=== PATIENT | male | born 1980 | race Two or more races ===

== ENCOUNTER 2024-12-28 15:03 | Inpatient (IN) | payer MEDICAID, OTHER ==
[~2024-12-28] VITALS: Ht 180.3 cm; Wt 103.8 kg
--- NOTE | 2024-12-28 15:33 | ED.PDOC ---
GI ASSESSMENT HPI Comments Allergies: NKDA HPI: Poor Historian. 44-year-old male presents to emergency depart for evaluation of right lower quadrant pain started on Saturday. Patient states also right back pain. He points to his right flank area. Pain is constant. Pain is worse with certain movements. Denies any associated nausea or vomiting or diarrhea. Denies any fever. This never happened before. Past Medical History: Denies any Past Surgical History: Denies any REVIEW OF SYSTEMS: CONSTITUTIONAL: Denies acute: fever, diaphoresis, chills, generalized weakness. HEAD: Denies acute: headache, photophobia Eyes: Denies acute: Double vision, vision loss, eye pain, eye discharge. EARS: Denies acute: tinnitus, hearing loss, ear discharge, ear pain, THROAT: Denies acute: sore throat, swelling, difficulty swallowing , pain with s wallowing, change in voice. NECK: Denies acute: neck pain, neck swelling, stiff neck. HEART: Denies acute : chest pain, palpitations, LUNGS: Denies acute: SOB, wheezing, cough, hemoptysis ABDOMEN: Denies acute: Nausea, Vomiting, diarrhea, melena , hematemesis, hematochezia SKIN: Denies acute: rash, redness, lesions, itchiness. EXTREMITIES: Denies acute: calf pain, numbness, tingling, weakness, denies pain in extremity. Denies acute: Low back pain. Neuro: Denies acute: focal neurological deficit, motor or sensory focal neurological deficit, tremors, seizure like activity, confusion, dizziness, change in mental status, loss of bowel or bladder function, cauda equina like symptoms. : Denies acute: dysuria, hematuria, increase in urinary frequency. PSYCH: Denies acute: hallucination, suicidal ideation, homicidal ideation. PHYSICAL EXAM: General: Clxa-kl-hiljlnji acute distress, awake and alert. Head: normocephalic, atraumatic. Neck: supple, trachea is midline, no swelling. Throat: Normal phonation. Eyes:, no erythema, no purulent discharge, no proptosis, no icterus. Heart: regular rate, regular rhythm, no significant murmur appreciated. Lungs: no apparent respiratory distress, Able to speak in full sentences. No wheezing, no rhonchi, no crackles. No stridors Clear to auscultation bilaterally. Abdomen: Right lower quadrant tender to palpation, non distended, soft, no guarding, no rebound, + bowel sounds. Neuro: Awake, Alert, oriented to name, self, situation, follows commands GCS=15. Speech is normal. Skin: no petechia, no purpura, no cyanosis, non-pale, not jaundice. Lower extremities: --no - Pitting edema no deformity, no focal swelling, no calf TTP. Makes eye contact. moves all four extremities. Face: no apparent facial droop. Right CVA tenderness to percussion Ambulating in the ED independently. ED COURSE: Chief Complaint: Abdominal Pain Time Seen by MD: 15:30 Primary Care Provider: none Reviewed Notes: Nurses Notes, Medications, Allergies Allergies: Coded Allergies: NO KNOWN ALLERGIES (Unverified , 12/28/24) Home Meds No Active Prescriptions or Reported Meds Information Source: Patient Mode of Arrival: Ambulatory Family History Family History: Reviewed,noncontributory to illness Social History Smoker: Non-Smoker Alcohol: Denies ETOH Use Drugs: Denies Drug Use Lives In: Home Was a procedure done? Was a procedure done?: No GI differential Dx Differential Diagnosis: Other (DDX include but not limited to diverticulitis, colitis, gastroenteritis, acute abdomen, SBO, enteritis, constipation, volvulus, appendicitis, Gallbladder disease, choledocolithiasis, ascending cholangitis, pancreatitis, intraAbdominal mass/neoplasm, hepatitis, UTI, pylonephritis, kidney stone, aneurysm, dissection, Inflammatory bowel disease, gastroparesis, ischemic bowel.) X-Ray, Labs, Meds, VS Vital Signs Date Time Temp Pulse Resp B/P (MAP) Pulse Ox O2 Delivery O2 Flow Rate FiO2 12/28/24 17:59 92 18 130/86 (101) 93 12/28/24 17:59 92 18 93 Room Air 12/28/24 17:58 92 18 130/86 12/28/24 17:05 91 15 152/95 12/28/24 16:46 91 12/28/24 16:39 90 20 95 Room Air* 0 21 12/28/24 16:27 98.0 91 20 152/95 (114) 95 98.0 12/28/24 15:19 98.3 90 19 153/87 (109) 97 Lab Test 12/28/24 17:52 12/28/24 16:12 12/28/24 15:28 Range/Units Lactic Acid Level 1.3 2.4 *H 0.4-2.0 mmol/L Urine Color Yellow Yellow Urine Clarity Clear Clear Urine pH 6.5 5.0-9.0 Urine Specific [place] 1.027 1.001-1.035 Urine Protein Trace H Negative Urine Ketones Negative Negative Urine Blood 2+ H Negative /uL Urine Nitrite Negative Negative Urine Bilirubin Negative Negative Urine Urobilinogen 2 H Negative mg/dL Urine Leukocyte Esterase Negative Negative /uL Urine RBC 71 0 - 3 /hpf Urine Microscopic WBC 2 0-3 /HPF Urine Squamous Epithelial Cells Few <5 /hpf Urine Bacteria None seen None Seen /hpf Urine Glucose Normal Normal mg/dL White Blood Count 10.7 4.4-10.8 10^3/uL Red Blood Count 5.11 4.5-5.90 10^6/uL Hemoglobin 15.8 13.5-17.5 g/dL Hematocrit 46.9 41.0-53.0 % Mean Corpuscular Volume 91.7 80.0-100.0 fL Mean Corpuscular Hemoglobin 30.9 28.0-32.0 pg Mean Corpuscular Hemoglobin Concent 33.7 32.0-36.0 g/dL Red Cell Distribution Width 13.1 11.8-14.3 % Platelet Count 268 140-450 10^3/uL Mean Platelet Volume 8.5 6.9-10.8 fL Neutrophils (%) (Auto) 80.2 H 37.0-80.0 % Lymphocytes (%) (Auto) 11.7 10.0-50.0 % Monocytes (%) (Auto) 7.8 0.0-12.0 % Eosinophils (%) (Auto) 0.0 0.0-7.0 % Basophils (%) (Auto) 0.3 0.0-2.0 % Neutrophils # (Auto) 8.6 1.6-8.6 10 ^3/uL Lymphocytes # (Auto) 1.3 0.4-5.4 10 ^3/uL Monocytes # (Auto) 0.8 0-1.3 10 ^3/uL Eosinophils # (Auto) 0 0-0.8 10 ^3/uL Basophils # (Auto) 0 0-0.2 10 ^3/uL Nucleated Red Blood Cells 0.1 % Sodium Level 141 136-145 mmol/L Potassium Level 3.9 3.5-5.1 mmol/L Chloride Level 104 98-107 mmol/L Carbon Dioxide Level 25 20-31 mmol/L Anion Gap 12 5-15 Blood Urea Nitrogen 12 9-23 mg/dL Creatinine 1.51 H 0.700-1.30 mg/dL Glomerular Filtration Rate Calc 59 >90 mL/min BUN/Creatinine Ratio 7.9 L 10.0-20.0 Serum Glucose 103 74-106 mg/dL Calcium Level 10.8 H 8.7-10.4 mg/dL Total Bilirubin 0.6 0.2-1.0 mg/dL Aspartate Amino Transferase (AST) 39 13-40 U/L Alanine Aminotransferase (ALT) 80 H 7-40 U/L Alkaline Phosphatase 75 46-116 U/L Troponin I High Sensitivity < 3 L </=54 ng/L Total Protein 8.2 5.7-8.2 g/dL Albumin 5.1 H 3.2-4.8 g/dL Lipase 45 12-53 U/L Hepatitis B Surface Antigen Pending Hepatitis C Antibody Pending Current Medications Medications (Trade) Dose Ordered Sig/Roz Route Start Time Stop Time Status Last Admin Sodium Chloride 1,000 ml @ 1,000 mls/hr Q1H ONCE IV 12/28/24 15:30 12/28/24 16:29 DC 12/28/24 16:25 Morphine Sulfate 4 mg ONCE ONCE IV 12/28/24 17:00 12/28/24 17:01 DC 12/28/24 17:05 Ondansetron HCl (Zofran) 4 mg ONCE ONCE IV 12/28/24 17:00 12/28/24 17:01 DC 12/28/24 17:04 Tamsulosin HCl (Flomax) 0.4 mg ONCE ONCE PO 12/28/24 17:15 12/28/24 17:16 DC 12/28/24 17:10 Ceftriaxone Sodium 50 ml @ 100 mls/hr ONCE ONCE IV 12/28/24 17:15 12/28/24 17:44 DC 12/28/24 17:09 [facility] [id number] [place] [id number] Ph: [phone] DIAGNOSTIC IMAGING Diagnostic Imaging Report : [id number] Signed PATIENT: MILAN COUGHLIN ACCT: [id number] UNIT: [id number] : 1980 LOC: ER ROOM / BED: / AGE / SEX: 44 / M ADM STATUS: REG ER SERVICE 1518 ORDERING PHYSICIAN: STEVIE PORTILLO DO PROCEDURE(s): ABPL - CT AB PEL WO CON-NO ORAL OR IV REASON: RLQ and R flank pain ORDER NUMBER(s): [id number], ACCESSION NUMBER(s): [id number] CT ABDOMEN AND PELVIS WITHOUT CONTRAST CLINICAL HISTORY: RLQ and R flank pain TECHNIQUE: Multiple contiguous axial images of the abdomen and pelvis without intravenous contrast. The images were reformatted degenerate coronal and sagittal reconstructions. All CT scans at this medical facility are performed using dose modulation techniques as appropriate to a performed exam including the following:Automated exposure control was utilized; adjustment of the MA and/or KV according to patient size; and use of iterative reconstruction technique. Radiation Dose Information: CT Dose: CTDI volume is 13 mGy. Dose-length product is 755 mGy*cm Comparison: None FINDINGS: Evaluation of the abdomen and pelvis is limited without intravenous contrast. There is a 4 mm calculus in the proximal right ureter. There is mild right hydroureteronephrosis. There is mild right perinephric fat stranding. There is no evidence of left renal calculus or hydronephrosis. There is mild fatty infiltration of the liver. The gallbladder, pancreas, adrenal glands, and spleen appear within normal limits. There is no gross evidence of abdominal lymphadenopathy. There is no free fluid or free air. The stomach grossly appears unremarkable. The small and large bowel loops demonstrate normal caliber. There are few scattered diverticula in the colon without evidence of acute diverticulitis. The abdominal aorta and IVC appear within normal limits. The bladder is poorly filled limiting evaluation. There is no evidence of a bladder calculus. The pelvic organs within normal limits.. There is no gross evidence of a pelvic mass. There is no free fluid collection. Lung bases are clear. There is no acute osseous abnormality. IMPRESSION: 1. 4 mm calculus in the proximal right ureter. There is mild right hydroureteronephrosis. There is mild right perinephric fat stranding. 2. Mild fatty infiltration of the liver. 3. Few scattered diverticula in the colon without evidence of acute diverticulitis. HS:Y ATED BY: VENTURA LEE MD DICTATED DATE/TIME: 12/28/241602 SIGNED BY: VENTURA LEE MD SIGNED DATE/TIME: 12/28/241602 [place] [address] Ph: [phone] DIAGNOSTIC IMAGING Diagnostic Imaging Report : [id number] Signed PATIENT: MILAN COUGHLIN ACCT: [id number] UNIT: [id number] : 1980 LOC: ER ROOM / BED: / AGE / SEX: 44 / M ADM STATUS: REG ER SERVICE 17 ORDERING PHYSICIAN: STEVIE PORTILLO DO PROCEDURE(s): CXRP - CHEST PORTABLE REASON: RLQ and R flank pain ORDER NUMBER(s): [id number], ACCESSION NUMBER(s): [id number] EXAM: XR Chest, 1 View CLINICAL INDICATION: RLQ and R flank pain TECHNIQUE: Frontal view of the chest. COMPARISON: None FINDINGS: LUNGS AND PLEURAL SPACES: Unremarkable. No consolidation. No pneumothorax. HEART: Unremarkable. No cardiomegaly. MEDIASTINUM: Unremarkable. Normal mediastinal contour. BONES/JOINTS: Unremarkable. No acute fracture. OTHER FINDINGS: . None. IMPRESSION: No acute cardiopulmonary process. ATED BY: LISA WEIR MD DICTATED DATE/TIME: 12/28/241604 SIGNED BY: LISA WEIR MD SIGNED DATE/TIME: 12/28/241604 Images Reviewed?: Images reviewed and evaluated by me Time of 1ST Reevaluation: 16:00 Reevaluation 1ST: Unchanged Patient Education/Counseling: Diagnosis, Treatment Family Education/Counseling: Other Comments Patient presented with the above HPI.-abdominal pain/flank pain-----workup was initiated. patient was found with the above mentioned diagnosis. the following medications were ordered: please refer to order lists of meds and tests obtained by myself Dr. Portillo. Patient ED course and VS have been stabilized. Patient has been reassessed in the ED and remained in a stable condition. Pertinent incidental findings were discussed with the patient and/or family. Patient/family voices understanding and is agreeable with plan. Patient has been observed in the ED adequate length of time to insure improvement/stability. Escalation of care considered: Consideration of escalation to observation or admission Patient was ADMITTED to the medicine team for further evaluation and treatment of their presentation. All the reports of any imaging studies that were ordered by myself were reviewed by myself. Departure 1 Departure Time of Disposition: 17:04 Impression: Primary Impression: Hydronephrosis with renal and ureteral calculus obstruction Disposition: ADMITTED INPATIENT Admit to: Tele Condition: Guarded e-Prescriptions No Active Prescriptions or Reported Meds Discharged With: Self Critical Care Note Critical Care Time?: No I personally scribed for STEVIE PORTILLO DO ([email or web address]) on 12/28/24 at 15:33. Electronically submitted by Nabil Guy ([email or web address]). I personally scribed for STEVIE PORTILLO DO ([email or web address]) on 12/28/24 at 16:06. Electronically submitted by Nabil Guy ([email or web address]). I personally scribed for STEVIE PORTILLO DO ([email or web address]) on 12/28/24 at 16:08. Electronically submitted by Nabil Guy ([email or web address]). I personally scribed for STEVIE PORTILLO DO ([email or web address]) on 12/28/24 at 16:09. Electronically submitted by Nabil Guy ([email or web address]). STEVIE PORTILLO DO Dec 28, 2024 15:33
--- NOTE | 2024-12-28 16:05 | DVH ---
CT ABDOMEN AND PELVIS WITHOUT CONTRAST CLINICAL HISTORY: RLQ and R flank pain TECHNIQUE: Multiple contiguous axial images of the abdomen and pelvis without intravenous contrast. T he images were reformatted degenerate coronal and sagittal reconstructions. All CT scans at this medical facility are performed using dose modulation techniques as appropriate t o a performed exam including the following:Automated exposure control was utilized; adjustment of the MA and/or KV according to patient size; and use of iterative reconstruction technique. Radiation Dose Information: CT Dose: CTDI volume is 13 mGy. Dose-length product is 755 mGy*cm Comparison: None FINDINGS: Evaluation of the abdomen and pelvis is limited without intravenous contrast. There is a 4 mm calculus in the proximal right ureter. There is mild right hydroureteronephrosis. The re is mild right perinephric fat stranding. There is no evidence of left renal calculus or hydronephr osis. There is mild fatty infiltration of the liver. The gallbladder, pancreas, adrenal glands, and spl een appear within normal limits. There is no gross evidence of abdominal lymphadenopathy. There is no free fluid or free air. The stomach grossly appears unremarkable. The small and large bowel loops demonstrate normal caliber . There are few scattered diverticula in the colon without evidence of acute diverticulitis. The abdominal aorta and IVC appear within normal limits. The bladder is poorly filled limiting evaluation. There is no evidence of a bladder calculus. The pel sushila organs within normal limits.. There is no gross evidence of a pelvic mass. There is no free flui d collection. Lung bases are clear. There is no acute osseous abnormality. IMPRESSION: 1. 4 mm calculus in the proximal right ureter. There is mild right hydroureteronephrosis. There is mi ld right perinephric fat stranding. 2. Mild fatty infiltration of the liver. 3. Few scattered diverticula in the colon without evidence of acute diverticulitis. HS:Y
[2024-12-28 16:06] LABS: Basophils # (auto) 0 10 ^3/uL (0-0.2); Basophils % (auto) 0.3 % (0.0-2.0); Eosinophils # (auto) 0 10 ^3/uL (0-0.8); Hematocrit 46.9 % (41.0-53.0); Hemoglobin 15.8 g/dL (13.5-17.5); Lymphocytes # (auto) 1.3 10 ^3/uL (0.4-5.4); Lymphocytes % (auto) 11.7 % (10.0-50.0); Mean Corpuscular Hemoglobin 30.9 pg (28.0-32.0); Mean Corpuscular Hgb Conc. 33.7 g/dL (32.0-36.0); Mean Corpuscular Volume 91.7 fL (80.0-100.0); Monocytes # (auto) 0.8 10 ^3/uL (0-1.3); Monocytes % (auto) 7.8 % (0.0-12.0); Neutrophils # (auto) 8.6 10 ^3/uL (1.6-8.6); Neutrophils % (auto) 80.2 % (37.0-80.0); Nucleated Red Blood Cells % 0.1 %; Platelet Count (auto) 268 10^3/uL (140-450); Red Blood Cells 5.11 10^6/uL (4.5-5.90); Red Cell Distribution Width 13.1 % (11.8-14.3); White Blood Cell 10.7 10^3/uL (4.4-10.8)
--- NOTE | 2024-12-28 16:07 | DVH ---
EXAM: XR Chest, 1 View CLINICAL INDICATION: RLQ and R flank pain TECHNIQUE: Frontal view of the chest. COMPARISON: None FINDINGS: LUNGS AND PLEURAL SPACES: Unremarkable. No consolidation. No pneumothorax. HEART: Unremarkable. No cardiomegaly. MEDIASTINUM: Unremarkable. Normal mediastinal contour. BONES/JOINTS: Unremarkable. No acute fracture. OTHER FINDINGS: . None. IMPRESSION: No acute cardiopulmonary process.
[2024-12-28 16:12] LABS: Urine Bacteria None Seen /hpf (None Seen)
[2024-12-28 16:25] LABS: Alkaline Phosphatase 75 U/L (46-116); Anion Gap 12 (5-15); Aspartate Aminotransferase 39 U/L (13-40); BUN/Creatinine Ratio 7.9 (10.0-20.0); Bilirubin, Total 0.6 mg/dL (0.2-1.0); Blood Urea Nitrogen 12 mg/dL (9-23); Carbon Dioxide 25 mmol/L (20-31); Chloride 104 mmol/L (98-107); Glucose 103 mg/dL (74-106); Lipase 45 U/L (12-53); Potassium 3.9 mmol/L (3.5-5.1); Sodium 141 mmol/L (136-145)
[2024-12-28] MEDS: SODIUM CHLORIDE 0.9% 1,000 ML IV ONE (16:25)
[2024-12-28 16:27] LABS: Alanine Aminotransferase 80 U/L (7-40); Albumin 5.1 g/dL (3.2-4.8); Calcium 10.8 mg/dL (8.7-10.4); Lactic Acid w/Reflex 2.4 mmol/L (0.4-2.0); Total Protein 8.2 g/dL (5.7-8.2)
[2024-12-28 16:39] VITALS: PULSE 90; RESP 20; O2SAT 95
[2024-12-28 16:45] LABS: Urine Blood 2+ /uL (Negative); Urine Clarity Clear (Clear); Urine Color Yellow (Yellow); Urine Protein, UAD TRACE (Negative); Urine Specific Gravity 1.027 (1.001-1.035); Urine Squamous Epithelial Cell FEW /hpf (<5); Urine Urobilinogen 2 mg/dL (Negative); Urine WBC 2 /HPF (0-3); Urine pH 6.5 (5.0-9.0)
--- NOTE | 2024-12-28 16:50 | ECG ---
[facility] Test Date: 2024-12-28 Test Time: 16:46:25 Pat Name: MILAN COUGHLIN Department: ER Room: [facility] Gender: M [employer]: [employer] : 1980 Requested By: STEVIE PORTILLO Order Number: [id number] Reading MD: Edward Oneill Measurements Intervals [place] Rate: 91 P: 62 [place]: 140 QRS: 73 QRSD: 88 T: 11 QT: 369 QTc: 455 Interpretive Statements Sinus rhythm Electronically Signed On 01-02-2025 18:24:22 PDT by Edward Oneill Please click the below link to view image of tracing.
[2024-12-28] MEDS: ONDANSETRON HCL 4 MG/2 ML VIAL IV ONE (17:04)
[2024-12-28] MEDS: MORPHINE SULFATE 4 MG/ML SYR/VIAL IV ONE (17:05)
[2024-12-28] MEDS: cefTRIAXone 1GM/50ML D5W 50 ML IV ONE (17:09)
[2024-12-28] MEDS: TAMSULOSIN HYDROCHLORIDE 0.4 MG CAP PO ONE (17:10)
[2024-12-28] MEDS ORDERED: ONDANSETRON HCL 4 MG/2 ML VIAL IV PRN (18:45)
[2024-12-28] MEDS ORDERED: TEMAZEPAM 15 MG CAP PO PRN (18:45)
[2024-12-28] MEDS: HYDROcodone-ACET 5/325MG TAB PO PRN (20:22)
[2024-12-28 20:46] VITALS: BP 151/92; PULSE 86; RESP 18; TEMP 98.8; O2SAT 97
--- NOTE | 2024-12-28 20:58 | DVHHP2 ---
History of Present Illness Reason for Visit: Flank pain History of Present Illness 44-year-old male presents for evaluation of flank pain. Patient reports a three day history of right-sided flank pain that is nonradiating. He describes the pain as sharp in nature. Denies fever or chills. He also reports nausea. No vomiting. No other acute complaints reported. Past Medical History Denies Past Surgical History Denies Family History Noncontributory Smoke: No ALCOHOL: heavy Drugs: None Lives: with Family Review of Systems Review of Systems Review of systems are currently negative otherwise addressed in HPI Allergies: Coded Allergies: NO KNOWN ALLERGIES (Unverified , 12/28/24) Medications Current Medications Medications Dose Ordered Sig/Roz Route Start Time Stop Time Status Last Admin Dose Admin Ceftriaxone Sodium 50 ml @ 100 mls/hr DAILY@09 IV 12/29/24 09:00 Acetaminophen/ Hydrocodone Bitart 1 tab Q4HP PRN PO 12/28/24 18:45 12/28/24 20:22 1 TAB Temazepam 15 mg QHSP PRN PO 12/28/24 18:45 Ondansetron HCl 4 mg Q4HP PRN IV 12/28/24 18:45 Acetaminophen 650 mg Q6HP PRN PO 12/28/24 18:45 Morphine Sulfate 2 mg Q6HPRN PRN IV 12/28/24 18:45 Exam Vital Signs Vital Signs Date Time Temp Pulse Resp B/P (MAP) Pulse Ox O2 Delivery O2 Flow Rate FiO2 12/28/24 17:59 92 18 130/86 (101) 93 12/28/24 17:59 Room Air 12/28/24 16:39 0 21 12/28/24 16:27 98.0 98.0 Exam Gen: 44-year-old male in mild distress. Skin: Warm, dry, normal color and texture, no rash. HEENT: Normocephalic atraumatic, mucous membranes moist and pink. Neck: Cervical and supraclavicular nodes normal without enlargement, trachea is midline, thyroid gland is normal without masses. Pulmonary: Clear to auscultation and percussion bilaterally. Cardiac: Regular rate and rhythm. No murmur Abdomen: Soft, right CVA tenderness, nondistended, bowel sounds present all 4 quadrants, no guarding, no rigidity, no organomegaly. Extremities: No cyanosis, clubbing, no edema Neuro: Cranial nerves II through XII grossly intact, normal affect and speech, no focal motor deficits. Labs/Xrays ORDERING PHYSICIAN: STEVIE PORTILLO DO PROCEDURE(s): ABPL - CT AB PEL WO CON-NO ORAL OR IV REASON: RLQ and R flank pain ORDER NUMBER(s): [id number], ACCESSION NUMBER(s): [id number] CT ABDOMEN AND PELVIS WITHOUT CONTRAST CLINICAL HISTORY: RLQ and R flank pain TECHNIQUE: Multiple contiguous axial images of the abdomen and pelvis without intravenous contrast. The images were reformatted degenerate coronal and sagittal reconstructions. All CT scans at this medical facility are performed using dose modulation techniques as appropriate to a performed exam including the following:Automated exposure control was utilized; adjustment of the MA and/or KV according to patient size; and use of iterative reconstruction technique. Radiation Dose Information: CT Dose: CTDI volume is 13 mGy. Dose-length product is 755 mGy*cm Comparison: None FINDINGS: Evaluation of the abdomen and pelvis is limited without intravenous contrast. There is a 4 mm calculus in the proximal right ureter. There is mild right hydroureteronephrosis. There is mild right perinephric fat stranding. There is no evidence of left renal calculus or hydronephrosis. There is mild fatty infiltration of the liver. The gallbladder, pancreas, adrenal glands, and spleen appear within normal limits. There is no gross evidence of abdominal lymphadenopathy. There is no free fluid or free air. The stomach grossly appears unremarkable. The small and large bowel loops demonstrate normal caliber. There are few scattered diverticula in the colon without evidence of acute diverticulitis. The abdominal aorta and IVC appear within normal limits. The bladder is poorly filled limiting evaluation. There is no evidence of a bladder calculus. The pelvic organs within normal limits.. There is no gross evidence of a pelvic mass. There is no free fluid collection. Lung bases are clear. There is no acute osseous abnormality. IMPRESSION: 1. 4 mm calculus in the proximal right ureter. There is mild right hydroureteronephrosis. There is mild right perinephric fat stranding. 2. Mild fatty infiltration of the liver. 3. Few scattered diverticula in the colon without evidence of acute diverticulitis. HS:Y RING PHYSICIAN: STEVIE PORTILLO DO PROCEDURE(s): CXRP - CHEST PORTABLE REASON: RLQ and R flank pain ORDER NUMBER(s): [id number], ACCESSION NUMBER(s): [id number] EXAM: XR Chest, 1 View CLINICAL INDICATION: RLQ and R flank pain TECHNIQUE: Frontal view of the chest. COMPARISON: None FINDINGS: LUNGS AND PLEURAL SPACES: Unremarkable. No consolidation. No pneumothorax. HEART: Unremarkable. No cardiomegaly. MEDIASTINUM: Unremarkable. Normal mediastinal contour. BONES/JOINTS: Unremarkable. No acute fracture. OTHER FINDINGS: . None. IMPRESSION: No acute cardiopulmonary process. Labs Test 12/28/24 17:52 12/28/24 16:12 12/28/24 15:28 Range/Units Lactic Acid Level 1.3 0.4-2.0 mmol/L Urine Color Yellow Yellow Urine Clarity Clear Clear Urine pH 6.5 5.0-9.0 Urine Specific [place] 1.027 1.001-1.035 Urine Protein Trace H Negative Urine Ketones Negative Negative Urine Blood 2+ H Negative /uL Urine Nitrite Negative Negative Urine Bilirubin Negative Negative Urine Urobilinogen 2 H Negative mg/dL Urine Leukocyte Esterase Negative Negative /uL Urine RBC 71 0 - 3 /hpf Urine Microscopic WBC 2 0-3 /HPF Urine Squamous Epithelial Cells Few <5 /hpf Urine Bacteria None seen None Seen /hpf Urine Glucose Normal Normal mg/dL White Blood Count 10.7 4.4-10.8 10^3/uL Red Blood Count 5.11 4.5-5.90 10^6/uL Hemoglobin 15.8 13.5-17.5 g/dL Hematocrit 46.9 41.0-53.0 % Mean Corpuscular Volume 91.7 80.0-100.0 fL Mean Corpuscular Hemoglobin 30.9 28.0-32.0 pg Mean Corpuscular Hemoglobin Concent 33.7 32.0-36.0 g/dL Red Cell Distribution Width 13.1 11.8-14.3 % Platelet Count 268 140-450 10^3/uL Mean Platelet Volume 8.5 6.9-10.8 fL Neutrophils (%) (Auto) 80.2 H 37.0-80.0 % Lymphocytes (%) (Auto) 11.7 10.0-50.0 % Monocytes (%) (Auto) 7.8 0.0-12.0 % Eosinophils (%) (Auto) 0.0 0.0-7.0 % Basophils (%) (Auto) 0.3 0.0-2.0 % Neutrophils # (Auto) 8.6 1.6-8.6 10 ^3/uL Lymphocytes # (Auto) 1.3 0.4-5.4 10 ^3/uL Monocytes # (Auto) 0.8 0-1.3 10 ^3/uL Eosinophils # (Auto) 0 0-0.8 10 ^3/uL Basophils # (Auto) 0 0-0.2 10 ^3/uL Nucleated Red Blood Cells 0.1 % Sodium Level 141 136-145 mmol/L Potassium Level 3.9 3.5-5.1 mmol/L Chloride Level 104 98-107 mmol/L Carbon Dioxide Level 25 20-31 mmol/L Anion Gap 12 5-15 Blood Urea Nitrogen 12 9-23 mg/dL Creatinine 1.51 H 0.700-1.30 mg/dL Glomerular Filtration Rate Calc 59 >90 mL/min BUN/Creatinine Ratio 7.9 L 10.0-20.0 Serum Glucose 103 74-106 mg/dL Calcium Level 10.8 H 8.7-10.4 mg/dL Total Bilirubin 0.6 0.2-1.0 mg/dL Aspartate Amino Transferase (AST) 39 13-40 U/L Alanine Aminotransferase (ALT) 80 H 7-40 U/L Alkaline Phosphatase 75 46-116 U/L Troponin I High Sensitivity < 3 L </=54 ng/L Total Protein 8.2 5.7-8.2 g/dL Albumin 5.1 H 3.2-4.8 g/dL Lipase 45 12-53 U/L Assessment/Plan Assessment/Plan Assessment Nephrolithiasis Right hydroureter nephrosis Acute kidney injury secondary to the above Leukocytosis Plan Admit the patient to [facility] to the hospitalist Nephrology consultation Pain management Rocephin Continue treatment per orders. Plan discussed with: Patient My Orders Orders - REGINE WALKER AGACNP Procedure Category Date Status Time Ceftriaxone 1gm/50ml PHA 12/29/24 In Process D5w (Rocephin) 09:00 Basic Metabolic Panel LAB 12/29/24 Verified 04:00 Admit ADMIT 12/28/24 Transmitted 18:42 Hydrocodone-Acet PHA 12/28/24 In Process 5/325mg Tab ([place] 18:45 Temazepam (Restoril) PHA 12/28/24 In Process 18:45 Ondansetron Hcl PHA 12/28/24 In Process (Zofran) 18:45 Complete Blood Count LAB 12/29/24 Verified 04:00 Condition: Stable EULALIO 12/28/24 In Process 18:42 Acetaminophen Tablet PHA 12/28/24 In Process (Tylenol Tablet) 18:45 Bedrest With Bathroom EULALIO 12/28/24 In Process Privileg 18:42 Morphine Sulfate PHA 12/28/24 In Process Injection 18:45 * Urology Consult CONS 12/28/24 Verified 18:42 Date of Service: Dec 28, 2024 Billing Provider: REGINE WALKER Common Visit Codes: [id number] INP/OBS CARE (MOD) REGINE WALKER Dec 28, 2024 20:58
[2024-12-28] MEDS: MORPHINE SULFATE INJ 2 MG/ml SYRG IV PRN (22:57)
[2024-12-29] VITALS (7 sets, daily range): BP systolic 110–148; BP diastolic 62–90; PULSE 76–116; RESP 16–20; TEMP 98–100.9; O2SAT 91–97
[2024-12-29 07:31] LABS: Basophils # (auto) 0 10 ^3/uL (0-0.2); Basophils % (auto) 0.3 % (0.0-2.0); Eosinophils # (auto) 0 10 ^3/uL (0-0.8); Eosinophils % (auto) 0.1 % (0.0-7.0); Hematocrit 40.6 % (41.0-53.0); Hemoglobin 13.6 g/dL (13.5-17.5); Lymphocytes # (auto) 1.4 10 ^3/uL (0.4-5.4); Mean Corpuscular Hemoglobin 30.8 pg (28.0-32.0); Mean Corpuscular Hgb Conc. 33.6 g/dL (32.0-36.0); Mean Corpuscular Volume 91.9 fL (80.0-100.0); Monocytes # (auto) 1.1 10 ^3/uL (0-1.3); Monocytes % (auto) 10.2 % (0.0-12.0); Neutrophils % (auto) 76.4 % (37.0-80.0); Platelet Count (auto) 212 10^3/uL (140-450); Red Blood Cells 4.42 10^6/uL (4.5-5.90); Red Cell Distribution Width 13.3 % (11.8-14.3); White Blood Cell 10.5 10^3/uL (4.4-10.8)
[2024-12-29 07:37] LABS: Chloride 106 mmol/L (98-107); Potassium 3.6 mmol/L (3.5-5.1); Sodium 138 mmol/L (136-145)
[2024-12-29 07:38] LABS: Anion Gap 8 (5-15); Calcium 9.3 mg/dL (8.7-10.4); Carbon Dioxide 24 mmol/L (20-31)
[2024-12-29 07:43] LABS: BUN/Creatinine Ratio 7.7 (10.0-20.0); Blood Urea Nitrogen 11 mg/dL (9-23); Glucose 100 mg/dL (74-106)
[2024-12-29 09:59] LABS: INR 0.99 (0.9-1.15); Partial Thromboplastin Time 26.9 SEC (24.5-34.5); Prothrombin Time 10.5 sec (9.3-11.8)
--- NOTE | 2024-12-29 10:02 | DVHINCON2 ---
Date of service: Dec 29, 2024 Referring Physician Hospitalist Reason for Consultation Renal colic History of Present Illness 44-year-old male presents for evaluation of flank pain. Patient reports a three day history of right-sided flank pain that is nonradiating. He describes the pain as sharp in nature. Denies fever or chills. He also reports nausea. No vomiting. No other acute complaints reported. CT Scan shows 4 mm right proximal ureteral stone with mild hydronephrosis. He is having no pain at the moment. He is not NPO. Will manage his stone as outpatient. Please discharge on pain medication. Past Medical History Denies Family History: Kidney stones G8 MOTHER Allergies: Coded Allergies: NO KNOWN ALLERGIES (Unverified , 12/28/24) Home Meds No Active Prescriptions or Reported Meds Current Medications Current Medications Medications (Trade) Dose Ordered Sig/Roz Route PRN Reason Start Time Stop Time Status Last Admin Ceftriaxone Sodium 50 ml @ 100 mls/hr DAILY@09 IV 12/29/24 09:00 Acetaminophen/ Hydrocodone Bitart ([place] 5/325MG Tab) 1 tab Q4HP PRN PO MODERATE PAIN (4-6 PAIN SCALE) 12/28/24 18:45 12/29/24 00:59 Temazepam (Restoril) 15 mg QHSP PRN PO FOR INSOMNIA 12/28/24 18:45 Ondansetron HCl (Zofran) 4 mg Q4HP PRN IV NAUSEA / VOMITING 12/28/24 18:45 Acetaminophen (Tylenol Tablet) 650 mg Q6HP PRN PO PAIN SCALE 1-3 OR TEMP>100.4 12/28/24 18:45 Morphine Sulfate 2 mg Q6HPRN PRN IV SEVERE PAIN (7-10 PAIN SCALE) 12/28/24 18:45 12/28/24 22:57 Review of Systems Review of systems are currently negative otherwise addressed in HPI Allergies: Coded Allergies: NO KNOWN ALLERGIES (Unverified , 12/28/24) Medications Current Medications Medications Dose Ordered Sig/Roz Route Start Time Stop Time Status Last Admin Dose Admin Ceftriaxone Sodium 50 ml @ 100 mls/hr DAILY@09 IV 12/29/24 09:00 Acetaminophen/ Hydrocodone Bitart 1 tab Q4HP PRN PO 12/28/24 18:45 12/28/24 20:22 1 TAB Temazepam 15 mg QHSP PRN PO 12/28/24 18:45 Ondansetron HCl 4 mg Q4HP PRN IV 12/28/24 18:45 Acetaminophen 650 mg Q6HP PRN PO 12/28/24 18:45 Morphine Sulfate 2 mg Q6HPRN PRN IV 12/28/24 18:45 Vital Signs Vital Signs Date Time Temp Pulse Resp B/P (MAP) Pulse Ox O2 Delivery O2 Flow Rate FiO2 12/29/24 08:00 76 12/29/24 08:00 18 97 Room Air* 0 21 12/29/24 05:00 98.2 115/71 (86) 98.2 Physical Exam Exam Exam Vital Signs Vital Signs Date Time Temp Pulse Resp B/P (MAP) Pulse Ox O2 Delivery O2 Flow Rate FiO2 12/28/24 17:59 92 18 130/86 (101) 93 12/28/24 17:59 Room Air 12/28/24 16:39 0 21 12/28/24 16:27 98.0 98.0 Exam Gen: 44-year-old male in mild distress. Skin: Warm, dry, normal color and texture, no rash. HEENT: Normocephalic atraumatic, mucous membranes moist and pink. Neck: Cervical and supraclavicular nodes normal without enlargement, trachea is midline, thyroid gland is normal without masses. Pulmonary: Clear to auscultation and percussion bilaterally. Cardiac: Regular rate and rhythm. No murmur Abdomen: Soft, right CVA tenderness, nondistended, bowel sounds present all 4 quadrants, no guarding, no rigidity, no organomegaly. Extremities: No cyanosis, clubbing, no edema Neuro: Cranial nerves II through XII grossly intact, normal affect and speech, no focal motor deficits. Labs/Diagnostic Data Labs Test 12/29/24 09:29 12/29/24 08:11 12/29/24 05:08 12/28/24 17:52 Range/Units Vitamin D 25-Hydroxy 26.4 L 30.0-100 ng/mL White Blood Count 10.5 4.4-10.8 10^3/uL Red Blood Count 4.42 L 4.5-5.90 10^6/uL Hemoglobin 13.6 13.5-17.5 g/dL Hematocrit 40.6 #L 41.0-53.0 % Mean Corpuscular Volume 91.9 80.0-100.0 fL Mean Corpuscular Hemoglobin 30.8 28.0-32.0 pg Mean Corpuscular Hemoglobin Concent 33.6 32.0-36.0 g/dL Red Cell Distribution Width 13.3 11.8-14.3 % Platelet Count 212 140-450 10^3/uL Mean Platelet Volume 8.5 6.9-10.8 fL Neutrophils (%) (Auto) 76.4 37.0-80.0 % Lymphocytes (%) (Auto) 13.0 10.0-50.0 % Monocytes (%) (Auto) 10.2 0.0-12.0 % Eosinophils (%) (Auto) 0.1 0.0-7.0 % Basophils (%) (Auto) 0.3 0.0-2.0 % Neutrophils # (Auto) 8.0 1.6-8.6 10 ^3/uL Lymphocytes # (Auto) 1.4 0.4-5.4 10 ^3/uL Monocytes # (Auto) 1.1 0-1.3 10 ^3/uL Eosinophils # (Auto) 0 0-0.8 10 ^3/uL Basophils # (Auto) 0 0-0.2 10 ^3/uL Nucleated Red Blood Cells 0.0 % Sodium Level 138 136-145 mmol/L Potassium Level 3.6 3.5-5.1 mmol/L Chloride Level 106 98-107 mmol/L Carbon Dioxide Level 24 20-31 mmol/L Anion Gap 8 5-15 Blood Urea Nitrogen 11 9-23 mg/dL Creatinine 1.43 H 0.700-1.30 mg/dL Glomerular Filtration Rate Calc 63 >90 mL/min BUN/Creatinine Ratio 7.7 L 10.0-20.0 Serum Glucose 100 74-106 mg/dL Hemoglobin A1c 5.6 <5.7 % A1C Calcium Level 9.3 8.7-10.4 mg/dL Magnesium Level 2.3 1.6-2.6 mg/dL Vitamin B12 Level 262 211-911 pg/mL Thyroid Stimulating Hormone (TSH) 0.62 0.55-4.78 uIU/mL Lactic Acid Level 1.3 0.4-2.0 mmol/L Test 12/28/24 16:12 12/28/24 15:28 Range/Units Urine Color Yellow Yellow Urine Clarity Clear Clear Urine pH 6.5 5.0-9.0 Urine Specific [place] 1.027 1.001-1.035 Urine Protein Trace H Negative Urine Ketones Negative Negative Urine Blood 2+ H Negative /uL Urine Nitrite Negative Negative Urine Bilirubin Negative Negative Urine Urobilinogen 2 H Negative mg/dL Urine Leukocyte Esterase Negative Negative /uL Urine RBC 71 0 - 3 /hpf Urine Microscopic WBC 2 0-3 /HPF Urine Squamous Epithelial Cells Few <5 /hpf Urine Bacteria None seen None Seen /hpf Urine Glucose Normal Normal mg/dL Total Bilirubin 0.6 0.2-1.0 mg/dL Aspartate Amino Transferase (AST) 39 13-40 U/L Alanine Aminotransferase (ALT) 80 H 7-40 U/L Alkaline Phosphatase 75 46-116 U/L Troponin I High Sensitivity < 3 L </=54 ng/L Total Protein 8.2 5.7-8.2 g/dL Albumin 5.1 H 3.2-4.8 g/dL Lipase 45 12-53 U/L Labs/Xrays Labs/Xrays ORDERING PHYSICIAN: STEVIE PORTILLO DO PROCEDURE(s): ABPL - CT AB PEL WO CON-NO ORAL OR IV REASON: RLQ and R flank pain ORDER NUMBER(s): [id number], ACCESSION NUMBER(s): [id number] CT ABDOMEN AND PELVIS WITHOUT CONTRAST CLINICAL HISTORY: RLQ and R flank pain TECHNIQUE: Multiple contiguous axial images of the abdomen and pelvis without intravenous contrast. The images were reformatted degenerate coronal and sagittal reconstructions. All CT scans at this medical facility are performed using dose modulation techniques as appropriate to a performed exam including the following:Automated exposure control was utilized; adjustment of the MA and/or KV according to patient size; and use of iterative reconstruction technique. Radiation Dose Information: CT Dose: CTDI volume is 13 mGy. Dose-length product is 755 mGy*cm Comparison: None FINDINGS: Evaluation of the abdomen and pelvis is limited without intravenous contrast. There is a 4 mm calculus in the proximal right ureter. There is mild right hydroureteronephrosis. There is mild right perinephric fat stranding. There is no evidence of left renal calculus or hydronephrosis. There is mild fatty infiltration of the liver. The gallbladder, pancreas, adrenal glands, and spleen appear within normal limits. There is no gross evidence of abdominal lymphadenopathy. There is no free fluid or free air. The stomach grossly appears unremarkable. The small and large bowel loops demonstrate normal caliber. There are few scattered diverticula in the colon without evidence of acute diverticulitis. The abdominal aorta and IVC appear within normal limits. The bladder is poorly filled limiting evaluation. There is no evidence of a bladder calculus. The pelvic organs within normal limits.. There is no gross evidence of a pelvic mass. There is no free fluid collection. Lung bases are clear. There is no acute osseous abnormality. IMPRESSION: 1. 4 mm calculus in the proximal right ureter. There is mild right hydroureteronephrosis. There is mild right perinephric fat stranding. 2. Mild fatty infiltration of the liver. 3. Few scattered diverticula in the colon without evidence of acute diverticulitis. HS:Y Assessment Right proximal ureteral stone Mild hydronephrosis Plan/Recommendation Pain control and expulsive measures. Outpatient ESWL TBA Plan discussed with: Patient, Other WILL BROWN MD Dec 29, 2024 10:02
[2024-12-29] MEDS: cefTRIAXone 1GM/50ML D5W 50 ML IV SCH (10:16)
[2024-12-29 11:19] LABS: Amphetamine Screen, Urine Neg (NEGATIVE); Barbiturate Scree,Urine Neg (NEGATIVE); Benzodiazephine Screen, Urine Neg (NEGATIVE); Cannabinoid Screen, Urine Neg (NEGATIVE); Cocaine Screen, Urine Neg (NEGATIVE); Opiate Scree,Urine Neg (NEGATIVE); Phencyclidine Screen, Urine Neg (NEGATIVE)
[2024-12-29] MEDS: MANNITOL FTV 25% 12.5 GM/50 ML 50 ML IV ONE (11:25)
[2024-12-29] MEDS ORDERED: HYDR-4902 PO ×2 (11:55→11:58)
[2024-12-29] MEDS: CYANOCOBALAMIN (B-12) 1000 MCG/1 ML VIAL IM ONE (12:00)
[2024-12-29] MEDS: ERGOCALCIFEROL 50,000 UNIT(1.25MG) CAP PO SCH (15:08)
[2024-12-29] MEDS: SODIUM CHLORIDE 0.9% 1,000 ML IV ONE (15:08)
[2024-12-29] MEDS ORDERED: LEVO750T40 PO (15:09)
--- NOTE | 2024-12-29 15:10 | DVHDSRES ---
Discharge Summary Date of Admission Resident Creating Document: TOOTIE SARGENT RESIDENT Dec 28, 2024 at 18:42 Date of Discharge: Dec 31, 2024 Labs/Diagnostic Data: Laboratory Results Test 12/29/24 09:29 12/29/24 08:11 12/29/24 05:08 12/28/24 17:52 Prothrombin Time 10.5 sec (9.3-11.8) Prothrombin Time INR 0.99 (0.9-1.15) Activated Partial Thromboplast Time 26.9 SEC (24.5-34.5) Vitamin D 25-Hydroxy 26.4 ng/mL (30.0-100) White Blood Count 10.5 10^3/uL (4.4-10.8) Red Blood Count 4.42 10^6/uL (4.5-5.90) Hemoglobin 13.6 g/dL (13.5-17.5) Hematocrit 40.6 % (41.0-53.0) Mean Corpuscular Volume 91.9 fL (80.0-100.0) Mean Corpuscular Hemoglobin 30.8 pg (28.0-32.0) Mean Corpuscular Hemoglobin Concent 33.6 g/dL (32.0-36.0) Red Cell Distribution Width 13.3 % (11.8-14.3) Platelet Count 212 10^3/uL (140-450) Mean Platelet Volume 8.5 fL (6.9-10.8) Neutrophils (%) (Auto) 76.4 % (37.0-80.0) Lymphocytes (%) (Auto) 13.0 % (10.0-50.0) Monocytes (%) (Auto) 10.2 % (0.0-12.0) Eosinophils (%) (Auto) 0.1 % (0.0-7.0) Basophils (%) (Auto) 0.3 % (0.0-2.0) Neutrophils # (Auto) 8.0 10 ^3/uL (1.6-8.6) Lymphocytes # (Auto) 1.4 10 ^3/uL (0.4-5.4) Monocytes # (Auto) 1.1 10 ^3/uL (0-1.3) Eosinophils # (Auto) 0 10 ^3/uL (0-0.8) Basophils # (Auto) 0 10 ^3/uL (0-0.2) Nucleated Red Blood Cells 0.0 % Sodium Level 138 mmol/L (136-145) Potassium Level 3.6 mmol/L (3.5-5.1) Chloride Level 106 mmol/L (98-107) Carbon Dioxide Level 24 mmol/L (20-31) Anion Gap 8 (5-15) Blood Urea Nitrogen 11 mg/dL (9-23) Creatinine 1.44 mg/dL (0.700-1.30) Glomerular Filtration Rate Calc 62 mL/min (>90) BUN/Creatinine Ratio 7.7 (10.0-20.0) Serum Glucose 100 mg/dL (74-106) Hemoglobin A1c 5.6 % A1C (<5.7) Calcium Level 9.3 mg/dL (8.7-10.4) Magnesium Level 2.3 mg/dL (1.6-2.6) Vitamin B12 Level 262 pg/mL (211-911) Thyroid Stimulating Hormone (TSH) 0.62 uIU/mL (0.55-4.78) Lactic Acid Level 1.3 mmol/L (0.4-2.0) Test 12/28/24 16:12 12/28/24 15:28 Urine Color Yellow (Yellow) Urine Clarity Clear (Clear) Urine pH 6.5 (5.0-9.0) Urine Specific [place] 1.027 (1.001-1.035) Urine Protein Trace (Negative) Urine Ketones Negative (Negative) Urine Blood 2+ /uL (Negative) Urine Nitrite Negative (Negative) Urine Bilirubin Negative (Negative) Urine Urobilinogen 2 mg/dL (Negative) Urine Leukocyte Esterase Negative /uL (Negative) Urine RBC 71 /hpf (0 - 3) Urine Microscopic WBC 2 /HPF (0-3) Urine Squamous Epithelial Cells Few /hpf (<5) Urine Bacteria None seen /hpf (None Seen) Urine Glucose Normal mg/dL (Normal) Urine Opiates Screen Neg (NEGATIVE) Urine Fentanyl Screen Neg (NEGATIVE) Urine Barbiturates Screen Neg (NEGATIVE) Urine Phencyclidine Screen Neg (NEGATIVE) Urine Amphetamines Screen Neg (NEGATIVE) Urine Benzodiazepines Screen Neg (NEGATIVE) Urine Cocaine Screen Neg (NEGATIVE) Urine Cannabinoids Screen Neg (NEGATIVE) Total Bilirubin 0.6 mg/dL (0.2-1.0) Aspartate Amino Transferase (AST) 39 U/L (13-40) Alanine Aminotransferase (ALT) 80 U/L (7-40) Alkaline Phosphatase 75 U/L (46-116) Troponin I High Sensitivity < 3 ng/L (</=54) Total Protein 8.2 g/dL (5.7-8.2) Albumin 5.1 g/dL (3.2-4.8) Lipase 45 U/L (12-53) Other Laboratory Tests 12/29/24 05:08 Brief Hx & Hospital Course: 44-year-old male presents for evaluation of flank pain. Patient reports a three day history of right-sided flank pain that is nonradiating. He describes the pain as sharp in nature. Denies fever or chills. He also reports nausea. No vomiting. No other acute complaints reported.. During the hospitalization, patient received IV fluids, tamsulosin was started. CT abdomen completed, showed 4 mm calculus in the proximal right ureter. There is mild right hydroureteronephrosis. There is mild right perinephric fat stranding. Mild fatty infiltration of the liver. Few scattered diverticula in the colon without evidence of acute diverticulitis. Urologist was consulted, recommended Pain control and expulsive measures, Outpatient ESWL TBA. Patient was advised to drink plenty of fluids, avoid salt and protein diet. He was also recommended strain urine. Patient has lactic acidosis resolved with IV fluids. Patient's discharge was delayed given he had intermittent febrile episodes and chills, intractable pain therefore urine culture was completed which was unremarkable. Prelim blood cultures were repeated which were negative. UA was tested which was unremarkable for UTI. COVID and flu were negative. Patient required IV morphine and Hamilton. Patient was advised on drinking plenty of fluids, low-salt diet and low protein diet, taking ibuprofen 600 mg p.r.n. for maximum of 3 days, medication side effects were explained. Patient understood and agreed with the discharge planning. 12/31/24 patient is hemodynamically, clinically stable, therefore regarding discharged home with the recommendation to follow up with the urologist as outpatient, primary care physician and discharge clinic within 7 days. Patient has been discharged on Hamilton for pain control, tablet Levaquin 750 mg for the next 7 days daily, tamsulosin 0.4 mg daily Consults/Reason for consult Urology consulted Operations or Procedures ORDERING PHYSICIAN: STEVIE PORTILLO DO PROCEDURE(s): ABPL - CT AB PEL WO CON-NO ORAL OR IV REASON: RLQ and R flank pain ORDER NUMBER(s): [id number], ACCESSION NUMBER(s): [id number] CT ABDOMEN AND PELVIS WITHOUT CONTRAST CLINICAL HISTORY: RLQ and R flank pain TECHNIQUE: Multiple contiguous axial images of the abdomen and pelvis without intravenous contrast. The images were reformatted degenerate coronal and sagittal reconstructions. All CT scans at this medical facility are performed using dose modulation techniques as appropriate to a performed exam including the following:Automated exposure control was utilized; adjustment of the MA and/or KV according to patient size; and use of iterative reconstruction technique. Radiation Dose Information: CT Dose: CTDI volume is 13 mGy. Dose-length product is 755 mGy*cm Comparison: None FINDINGS: Evaluation of the abdomen and pelvis is limited without intravenous contrast. There is a 4 mm calculus in the proximal right ureter. There is mild right hydroureteronephrosis. There is mild right perinephric fat stranding. There is no evidence of left renal calculus or hydronephrosis. There is mild fatty infiltration of the liver. The gallbladder, pancreas, adrenal glands, and spleen appear within normal limits. There is no gross evidence of abdominal lymphadenopathy. There is no free fluid or free air. The stomach grossly appears unremarkable. The small and large bowel loops demonstrate normal caliber. There are few scattered diverticula in the colon without evidence of acute diverticulitis. The abdominal aorta and IVC appear within normal limits. The bladder is poorly filled limiting evaluation. There is no evidence of a bladder calculus. The pelvic organs within normal limits.. There is no gross evidence of a pelvic mass. There is no free fluid collection. Lung bases are clear. There is no acute osseous abnormality. IMPRESSION: 1. 4 mm calculus in the proximal right ureter. There is mild right hydroureteronephrosis. There is mild right perinephric fat stranding. 2. Mild fatty infiltration of the liver. 3. Few scattered diverticula in the colon without evidence of acute diverticulitis. HS:Y ATED BY: VENTURA LEE MD DICTATED DATE/TIME: 12/28/24 1603 SIGNED BY: VENTURA LEE MD SIGNED DATE/TIME: 12/28/24 1603 CC: Condition at Discharge: Stable Final Diagnosis/Problems List Right flank pain secondary to Right proximal ureteral stone Lactic acidosis-resolved Mild hydronephrosis MIREYA, likely vasomotor mediated Vitamin-D deficiency Obesity Discharge Disposition: Home Discharge Instruct/Medications Diet: Renal, See Comment Diet comment: Drink plenty of fluids Activity: No Restrictions, As Tolerated Follow Up/Referral: Follow up with primary care physician within 7 days and repeat BMP and creatinine Follow up with Urology as outpatient within 7 days Medications: Per EMR Discharge Statement: "Patient was advised to return to the ER or call 911 if any headaches, dizziness, shortness of breath, chest pain, abdominal pain, bleeding, fevers, or worsening of medical condition. Patient was counseled about treatment plan, medications, possible side effects, patientverbalized understanding. All questions were answered to the best of my ability. This discharge took greater then 30 minutes in planning, reviewing documentation, counseling the patient, and discussing with other team members." ASSESSMENT ASSESSMENT Assessment Right proximal ureteral stone Mild hydronephrosis MIREYA, likely vasomotor mediated Date of Service: Dec 31, 2024 Billing Provider: FRANCES MARIE MD Common Visit Codes: [id number] DISCH DAY >30min TOOTIE SARGENT RESIDENT Dec 29, 2024 15:10 FRANCES MARIE MD Jan 01, 2025 09:48
[2024-12-29] MEDS ORDERED: TAMS0.4C39 PO (15:16)
[2024-12-29] MEDS: ACETAMINOPHEN 325 MG TAB PO PRN (15:36)
--- NOTE | 2024-12-29 16:35 | DVHPNRES ---
Progress Note Date Seen: Dec 29, 2024 Resident Creating Document: TOOTIE SARGENT RESIDENT Medical Necessity Reason Pt with a Central, PICC or Fol: No Subjective Review of Systems 44-year-old male presents for evaluation of flank pain. Patient reports a three day history of right-sided flank pain that is nonradiating. He describes the pain as sharp in nature. Denies fever or chills. He also reports nausea. No vomiting. No other acute complaints reported.. Past medical history: Chronic nicotine dependence Past surgical history: Unremarkable Social history: Unemployed, smokes half a pack a day for 20 years, denies drinking illicit drug use Patient seen and examined at the bedside. Developing fevers 100.9, repeat blood culture, repeat urine culture, COVID and flu pending Objective vital signs Vital Sign Date Time Temp Pulse Resp B/P (MAP) Pulse Ox O2 Delivery O2 Flow Rate FiO2 12/29/24 15:36 100.9 12/29/24 13:08 98 19 111/62 (78) 94 12/29/24 08:00 Room Air* 0 21 Total Intake and Output 12/28/24 12/28/24 12/29/24 15:00 23:00 07:00 Intake Total 1050 ml 200 ml Balance 1050 ml 200 ml medications Current Medications Medications Dose Ordered Sig/Roz Route Start Time Stop Time Status Last Admin Dose Admin Ceftriaxone Sodium 50 ml @ 100 mls/hr DAILY@09 IV 12/29/24 09:00 12/29/24 10:16 100 MLS/HR Acetaminophen/ Hydrocodone Bitart 1 tab Q4HP PRN PO 12/28/24 18:45 12/29/24 00:59 1 TAB Temazepam 15 mg QHSP PRN PO 12/28/24 18:45 Ondansetron HCl 4 mg Q4HP PRN IV 12/28/24 18:45 Acetaminophen 650 mg Q6HP PRN PO 12/28/24 18:45 12/29/24 15:36 650 MG Morphine Sulfate 2 mg Q6HPRN PRN IV 12/28/24 18:45 12/28/24 22:57 2 MG Ergocalciferol 50,000 unit Q7D PO 12/29/24 12:00 12/29/24 15:08 50,000 UNIT Examination Patient lying in bed, in no acute distress General: Well-built, afebrile, palor, mucosae are moist Cardiovascular: Regular S1 and S2. No murmurs, gallops or rubs. No JVD elevation. No pedal edema Respiratory: Normal B/L air entry on room air. Clear lung sounds on auscultation Abdomen: Soft, nontender, nondistended, normoactive bowel sounds, no rebound tenderness, no organomegaly, no masses. Right-sided costovertebral angle tenderness. Genitourinary: Deferred MSK/skin: Mobilizes 4 limbs. Skin is dry and warm Neurological: No motor, no sensitive deficits, normal speech. Pupils are isocoric and reactive. Psych/Mental Status: A/Ox3 laboratory and microbiology Laboratory Tests 12/29/24 05:08 Test 12/29/24 05:08 Range/Units Serum Glucose 100 74-106 mg/dL Labs and/or images reviewed: Labs reviewed by me, Image(s) reviewed by me Problem List/Assessment/Plan Problem List/Assessment/Plan Right flank pain secondary to Right proximal ureteral stone Suspected pyelonephritis Lactic acidosis Mild hydronephrosis MIREYA, likely vasomotor mediated Vitamin-D deficiency Obesity Continue IV ceftriaxone Continue IV NS 150 cc an hour Continuous straining urine Urology recommended outpatient ESWL Tylenol 650 Q 8 hourly scheduled for fever Blood culture and urine culture pending Repeat lactic acid given fever Plan discussed with patient and at the bedside in which all questions have been answered Goals of care discussed for more than 32 minutes, full code status Case discussed with Dr. Marie Plan discussed with: Patient My Orders My Orders Orders - TOOTIE SARGENT Procedure Category Date Status Time Sodium Chloride 0.9% PHA 12/29/24 In Process 12:00 Ergocalciferol PHA 12/29/24 In Process (Vitamin D 50,000 12:00 Schedule For Dc EULALIO 12/29/24 In Process Clinic F/U 15:06 Covid19 Antigen Kylie LAB 12/29/24 Logged Rapid Influenza A&B LAB 12/29/24 Logged 16:13 Urinalysis LAB 12/29/24 Logged 16:13 Date of Service: Dec 29, 2024 Billing Provider: FRANCES MARIE MD Common Visit Codes: [id number] INP/OBS CARE(HIGH) TOOTIE SARGENT Dec 29, 2024 16:35 FRANCES MARIE MD Dec 29, 2024 22:41
[2024-12-29 17:12] LABS: Urine Bacteria None Seen /hpf (None Seen)
[2024-12-29 17:31] LABS: Urine Blood Negative /uL (Negative); Urine Clarity Clear (Clear); Urine Color Light-Yellow (Yellow); Urine Protein, UAD Negative (Negative); Urine Specific Gravity 1.011 (1.001-1.035); Urine Squamous Epithelial Cell FEW /hpf (<5); Urine Urobilinogen Normal (Negative); Urine WBC 1 /HPF (0-3)
[2024-12-29] MEDS: SODIUM CHLORIDE 0.9% 1,000 ML IV SCH (17:47)
[2024-12-29] MEDS: ACETAMINOPHEN 325 MG TAB PO SCH (17:47)
[2024-12-29 18:43] LABS: COVID19 ANTIGEN SOFIA FIA NEGATIVE (NEGATIVE); Rapid Influenza A Negative (Negative); Rapid Influenza B Negative (Negative)
[2024-12-30] VITALS (9 sets, daily range): BP systolic 92–145; BP diastolic 58–91; PULSE 72–87; RESP 17–20; TEMP 98.4–99.3; O2SAT 93–97
[2024-12-30 06:06] LABS: Alkaline Phosphatase 53 U/L (46-116); Anion Gap 8 (5-15); Aspartate Aminotransferase 22 U/L (13-40); BUN/Creatinine Ratio 8.3 (10.0-20.0); Basophils # (auto) 0 10 ^3/uL (0-0.2); Basophils % (auto) 0.5 % (0.0-2.0); Bilirubin, Total 0.6 mg/dL (0.2-1.0); Blood Urea Nitrogen 11 mg/dL (9-23); Calcium 9.2 mg/dL (8.7-10.4); Carbon Dioxide 24 mmol/L (20-31); Eosinophils # (auto) 0 10 ^3/uL (0-0.8); Eosinophils % (auto) 0.6 % (0.0-7.0); Glucose 92 mg/dL (74-106); Hematocrit 40.1 % (41.0-53.0); Hemoglobin 13.8 g/dL (13.5-17.5); Lymphocytes # (auto) 2.2 10 ^3/uL (0.4-5.4); Lymphocytes % (auto) 32.5 % (10.0-50.0); Mean Corpuscular Hemoglobin 31.9 pg (28.0-32.0); Mean Corpuscular Hgb Conc. 34.4 g/dL (32.0-36.0); Mean Corpuscular Volume 92.6 fL (80.0-100.0); Monocytes # (auto) 0.9 10 ^3/uL (0-1.3); Monocytes % (auto) 13.5 % (0.0-12.0); Neutrophils # (auto) 3.6 10 ^3/uL (1.6-8.6); Neutrophils % (auto) 52.9 % (37.0-80.0); Nucleated Red Blood Cells % 0.1 %; Platelet Count (auto) 196 10^3/uL (140-450); Red Blood Cells 4.33 10^6/uL (4.5-5.90); Red Cell Distribution Width 13.3 % (11.8-14.3); Sodium 142 mmol/L (136-145); Total Protein 6.7 g/dL (5.7-8.2); White Blood Cell 6.9 10^3/uL (4.4-10.8)
[2024-12-30 06:21] LABS: Alanine Aminotransferase 44 U/L (7-40); Chloride 110 mmol/L (98-107)
[2024-12-30] MEDS: HYDROcodone-ACET 10/325MG TAB PO ONE (14:24)
--- NOTE | 2024-12-30 15:16 | ECG ---
[facility] Test Date: 2024-12-28 Test Time: 16:45:41 Pat Name: MILAN COUGHLIN Department: ER Room: 0271 B Gender: M Steel Finisher: CHRISTINA : 1980 Requested By: STEVIE PORTILLO Order Number: [id number] Reading MD: Edward Oneill Measurements Intervals [facility] Rate: 94 P: 64 W[place]: 134 QRS: 70 QRSD: 90 T: 9 QT: 360 QTc: 451 Interpretive Statements Sinus rhythm Baseline wander in lead(s) I,II,aVR Electronically Signed On 01-02-2025 18:24:16 PDT by Edward Oneill Please click the below link to view image of tracing.
--- NOTE | 2024-12-30 15:40 | DVH ---
INDICATION: costovertebral tenderness TECHNIQUE: Multiple real-time sonographic images of the kidneys and bladder were obtained. COMPARISON: None FINDINGS: The right kidney measures 11 cm in length, which is normal in size. There is normal echogen icity of the right kidney. No hydronephrosis. The left kidney measures 10 cm in length, which is normal in size. There is normal echogenicity of th e left kidney. No hydronephrosis. No large intraluminal masses are seen in the bladder. Prior to voiding the bladder IMPRESSION: 1. Normal sonographic appearance of the kidneys. No hydronephrosis.
--- NOTE | 2024-12-30 16:24 | DVHPNRES ---
Progress Note Date Seen: Dec 30, 2024 Resident Creating Document: TOOTIE SARGENT RESIDENT Medical Necessity Reason Pt with a Central, PICC or Fol: No Subjective Review of Systems 44-year-old male presents for evaluation of flank pain. Patient reports a three day history of right-sided flank pain that is nonradiating. He describes the pain as sharp in nature. Denies fever or chills. He also reports nausea. No vomiting. No other acute complaints reported.. Past medical history: Chronic nicotine dependence Past surgical history: Unremarkable Social history: Unemployed, smokes half a pack a day for 20 years, denies drinking illicit drug use 12/30 - Patient seen and examined at the bedside. Developing fevers 100.9, repeat blood culture, repeat urine culture, COVID and flu pending. Urology recommended 12/31 - patient seen and examined at the bedside. Reports worse pain, 10/10. Increase Ashby to 10/325. Overnight low-grade fever, repeat blood culture is pending. COVID and flu negative. UA negative. Urine culture is negative. Renal ultrasound pending. Objective vital signs Vital Sign Date Time Temp Pulse Resp B/P (MAP) Pulse Ox O2 Delivery O2 Flow Rate FiO2 12/30/24 12:49 98.4 77 17 124/69 (87) 97 98.4 12/30/24 07:54 Room Air* 0 21 Total Intake and Output 12/29/24 12/29/24 12/30/24 15:00 23:00 07:00 Intake Total 50 ml 400 ml Output Total 851 ml 810 ml Balance 50 ml -851 ml -410 ml medications Current Medications Medications Dose Ordered Sig/Roz Route Start Time Stop Time Status Last Admin Dose Admin Ceftriaxone Sodium 50 ml @ 100 mls/hr DAILY@09 IV 12/29/24 09:00 12/30/24 08:22 100 MLS/HR Temazepam 15 mg QHSP PRN PO 12/28/24 18:45 Ondansetron HCl 4 mg Q4HP PRN IV 12/28/24 18:45 Ergocalciferol 50,000 unit Q7D PO 12/29/24 12:00 12/29/24 15:08 50,000 UNIT Sodium Chloride 1,000 ml @ 150 mls/hr Q6H40M IV 12/29/24 16:45 12/30/24 11:33 150 MLS/HR Acetaminophen 650 mg Q6H PO 12/29/24 18:00 12/30/24 11:32 650 MG Morphine Sulfate 2 mg Q4HPRN PRN IV 12/30/24 14:00 Acetaminophen/ Hydrocodone Bitart 1 tab Q6HP PRN PO 12/30/24 14:00 Examination Patient lying in bed, in no acute distress General: Well-built, afebrile, palor, mucosae are moist Cardiovascular: Regular S1 and S2. No murmurs, gallops or rubs. No JVD elevation. No pedal edema Respiratory: Normal B/L air entry on room air. Clear lung sounds on auscultation Abdomen: Soft, nontender, nondistended, normoactive bowel sounds, no rebound tenderness, no organomegaly, no masses. Right-sided costovertebral angle tenderness. Genitourinary: Deferred MSK/skin: Mobilizes 4 limbs. Skin is dry and warm Neurological: No motor, no sensitive deficits, normal speech. Pupils are isocoric and reactive. Psych/Mental Status: A/Ox3 laboratory and microbiology Laboratory Tests 12/30/24 05:29 Test 12/30/24 05:29 Range/Units Serum Glucose 92 74-106 mg/dL Microbiology Date/Time Source Procedure Growth Status 12/29/24 17:09 Voided Urine Urine Culture - Preliminary Resulted Labs and/or images reviewed: Labs reviewed by me, Image(s) reviewed by me Problem List/Assessment/Plan Problem List/Assessment/Plan Right flank pain secondary to Right proximal ureteral stone Intractable flank pain Febrile episode secondary to above Suspected pyelonephritis Lactic acidosis Mild hydronephrosis MIREYA, likely vasomotor mediated Vitamin-D deficiency Obesity Continue IV ceftriaxone Continue IV NS 150 cc an hour Continuous straining urine Urology recommended outpatient ESWL Tylenol 650 Q 8 hourly scheduled for fever IV morphine and p.o. Ashby for pain control Blood culture pending Prelim urine culture Negative Repeat lactic acid is negative Plan discussed with patient and at the bedside in which all questions have been answered Goals of care discussed for more than 32 minutes, full code status Case discussed with Dr. Marie Plan discussed with: Patient My Orders My Orders Orders - TOOTIE SARGENT RESIDENT Procedure Category Date Status Time Blood Culture PANDA 12/29/24 In Process 16:36 Urine Bacterial PANDA 3/11/25 In Process Culture 16:36 Sodium Chloride 0.9% PHA 12/29/24 In Process 16:45 Acetaminophen Tablet PHA 12/29/24 In Process (Tylenol Tablet) 18:00 Morphine Sulfate PHA 12/30/24 In Process Injection 14:00 Hydrocodone-Acet PHA 12/30/24 In Process 10/325mg Tab (Ashby 14:00 Kidney US 12/30/24 Resulted 13:50 Date of Service: Dec 30, 2024 Billing Provider: FRANCES MARIE MD Common Visit Codes: [id number] INP/OBS CARE(HIGH) TOOTIE SARGENT RESIDENT Dec 30, 2024 16:24 FRANCES MARIE MD Dec 30, 2024 21:30
[2024-12-30] MEDS: MORPHINE SULFATE INJ 2 MG/ml SYRG IV PRN (17:50)
[2024-12-31 01:00] VITALS: BP 121/83; PULSE 72; RESP 18; TEMP 98; O2SAT 100
[2024-12-31] MEDS: MORPHINE SULFATE INJ 2 MG/ml SYRG IV ONE (02:41)
[2024-12-31 05:00] VITALS: BP 137/83; PULSE 88; RESP 17; TEMP 98.8; O2SAT 95
[2024-12-31] MEDS: HYDROcodone-ACET 10/325MG TAB PO PRN (06:28)
[2024-12-31 08:00] VITALS: PULSE 83; RESP 16
[2024-12-31 09:00] VITALS: BP 131/83; PULSE 82; RESP 15; TEMP 97.5; O2SAT 94
[2024-12-31 10:59] LABS: Hepatitis B Surface Antigen Negative (Negative); Hepatitis C Antibody Negative (Negative)
--- NOTE | 2024-12-31 12:30 | DVHPNRES ---
Progress Note Date Seen: Dec 31, 2024 Resident Creating Document: TOOTIE SARGENT RESIDENT Medical Necessity Reason Pt with a Central, PICC or Fol: No Subjective Review of Systems 44-year-old male presents for evaluation of flank pain. Patient reports a three day history of right-sided flank pain that is nonradiating. He describes the pain as sharp in nature. Denies fever or chills. He also reports nausea. No vomiting. No other acute complaints reported.. Past medical history: Chronic nicotine dependence Past surgical history: Unremarkable Social history: Unemployed, smokes half a pack a day for 20 years, denies drinking illicit drug use 12/29 - Patient seen and examined at the bedside. Developing fevers 100.9, repeat blood culture, repeat urine culture, COVID and flu pending. Urology recommended 12/30 - patient seen and examined at the bedside. Reports worse pain, 10/10. Increase Hollenberg to 10/325. Overnight low-grade fever, repeat blood culture is pending. COVID and flu negative. UA negative. Urine culture is negative. Renal ultrasound pending. 12/31-patient seen and examined at bedside. Reports feeling better. Repeat blood culture is negative preliminary. Urine culture is negative. Patient will be discharged home. Objective vital signs Vital Sign Date Time Temp Pulse Resp B/P (MAP) Pulse Ox O2 Delivery O2 Flow Rate FiO2 12/31/24 10:44 80 16 129/80 12/31/24 09:00 97.5 94 97.5 12/30/24 20:00 Room Air* 0 21 Total Intake and Output 12/30/24 12/30/24 12/31/24 15:00 23:00 07:00 Intake Total 50 ml 1100 ml 736 ml Output Total 2550 ml Balance 50 ml 1100 ml -1814 ml medications Current Medications Medications Dose Ordered Sig/Roz Route Start Time Stop Time Status Last Admin Dose Admin Ceftriaxone Sodium 50 ml @ 100 mls/hr DAILY@09 IV 12/29/24 09:00 12/31/24 10:13 100 MLS/HR Temazepam 15 mg QHSP PRN PO 12/28/24 18:45 Ondansetron HCl 4 mg Q4HP PRN IV 12/28/24 18:45 Ergocalciferol 50,000 unit Q7D PO 12/29/24 12:00 12/29/24 15:08 50,000 UNIT Sodium Chloride 1,000 ml @ 150 mls/hr Q6H40M IV 12/29/24 16:45 12/31/24 08:45 150 MLS/HR Acetaminophen 650 mg Q6H PO 12/29/24 18:00 12/30/24 17:48 650 MG Morphine Sulfate 2 mg Q4HPRN PRN IV 12/30/24 14:00 12/31/24 10:14 2 MG Acetaminophen/ Hydrocodone Bitart 1 tab Q6HP PRN PO 12/30/24 14:00 12/31/24 06:28 1 TAB Tamsulosin HCl 0.4 mg QPM PO 12/31/24 18:00 Examination Patient lying in bed, in no acute distress General: Well-built, afebrile, palor, mucosae are moist Cardiovascular: Regular S1 and S2. No murmurs, gallops or rubs. No JVD elevation. No pedal edema Respiratory: Normal B/L air entry on room air. Clear lung sounds on auscultation Abdomen: Soft, nontender, nondistended, normoactive bowel sounds, no rebound tenderness, no organomegaly, no masses. Right-sided costovertebral angle tenderness. Genitourinary: Deferred MSK/skin: Mobilizes 4 limbs. Skin is dry and warm Neurological: No motor, no sensitive deficits, normal speech. Pupils are isocoric and reactive. Psych/Mental Status: A/Ox3 laboratory and microbiology Laboratory Tests 12/30/24 05:29 Test 12/30/24 05:29 Range/Units Serum Glucose 92 74-106 mg/dL Microbiology Date/Time Source Procedure Growth Status 12/29/24 18:03 Blood Blood Culture - Preliminary NO GROWTH AFTER 24 HOURS OF INCUBATION. Resulted 12/29/24 17:09 Voided Urine Urine Culture - Preliminary Resulted Labs and/or images reviewed: Labs reviewed by me, Image(s) reviewed by me Problem List/Assessment/Plan Problem List/Assessment/Plan 12/31-patient seen and examined at bedside. Reports feeling better. Repeat blood culture is negative preliminary. Urine culture is negative. Patient will be discharged home. Right flank pain secondary to Right proximal ureteral stone Intractable flank pain Febrile episode secondary to above Suspected pyelonephritis Lactic acidosis Mild hydronephrosis MIREYA, likely vasomotor mediated Vitamin-D deficiency Obesity Continue IV ceftriaxone Continue IV NS 150 cc an hour Continuous straining urine Urology recommended outpatient ESWL Tylenol 650 Q 8 hourly scheduled for fever IV morphine and p.o. Hollenberg for pain control Blood culture pending Prelim urine culture Negative Repeat lactic acid is negative Plan discussed with patient and at the bedside in which all questions have been answered Goals of care discussed for more than 32 minutes, full code status Case discussed with Dr. Marie Plan discussed with: Patient, Spouse (The bedside) My Orders My Orders Orders - TOOTIE SARGENT Procedure Category Date Status Time Morphine Sulfate PHA 12/30/24 In Process Injection 14:00 Hydrocodone-Acet PHA 12/30/24 In Process 10/325mg Tab ([place] 14:00 Kidney US 12/30/24 Resulted 13:50 Discharge DISCHARGE 12/31/24 Transmitted 11:54 Dietary Evaluation Review Comments: 1) Consider CCHO 75gm along with current diet 2) Refer CDE on DC 3) Continue current plan of care Expected Outcomes/Goals: Pt will meet >75% estimated needs Fu 3-5 days TOOTIE SARGENT Dec 31, 2024 12:30 FRANCES MARIE MD Jan 01, 2025 09:49
[2024-12-31 12:37] VITALS: BP 142/86; PULSE 83; RESP 16; TEMP 97.9; O2SAT 94
[2024-12-31] MEDS ORDERED: TAMSULOSIN HYDROCHLORIDE 0.4 MG CAP PO SCH (18:00)
== END 2024-12-31 14:00 | disposition home or self-care (01) | DRG 465 ==
LOC: ER 15:03 → OVERFLOW 18:42 → WEST WING 18:45
PROVIDERS: ADMIT Internal Medicine; ATTEND Internal Medicine
DX: N13.2 Hydronephrosis with renal and ureteral calculous obstruction (principal); N17.0 Acute kidney failure with tubular necrosis; E87.20 Acidosis, unspecified; K76.0 Fatty (change of) liver, not elsewhere classified; D72.829 Elevated white blood cell count, unspecified; E55.9 Vitamin D deficiency, unspecified; E66.9 Obesity, unspecified; K57.30 Diverticulosis of large intestine without perforation or abscess without bleeding; Z68.31 Body mass index [BMI] 31.0-31.9, adult; Z79.899 Other long term (current) drug therapy
CPT/HCPCS: 36415; 71045; 74176; 76775; 80048; 80053; 80307; 81001; 82306; 82565; 82607; 83036; 83605; 83690; 83735; 84443; 84484; 85025; 85610; 85730; 86803; 87040; 87086; 87340; 87426; 87804; 93005; G0378; J2405